=== PATIENT | female | born 1955 | race Caucasian/White ===

== ENCOUNTER 2017-05-17 05:38 | Day surgery (SDC) | payer OTHER ==
[2017-05-17] MEDS ORDERED: MIDAZOLAM 1 MG/ML 2 ML INJ (07:42)
[2017-05-17] MEDS ORDERED: FENTAnyl 50 MCG/ML VIAL (07:42)
== END 2017-05-17 11:19 | disposition home or self-care (01) ==
LOC: GIL 05:38
DX: K21.9 Gastro-esophageal reflux disease without esophagitis (principal); K29.70 Gastritis, unspecified, without bleeding; E11.9 Type 2 diabetes mellitus without complications; E78.5 Hyperlipidemia, unspecified; Z79.84 Long term (current) use of oral hypoglycemic drugs; K76.0 Fatty (change of) liver, not elsewhere classified
CPT/HCPCS: 43239; 87081

== ENCOUNTER 2018-07-07 05:50 | Day surgery (SDC) | payer OTHER ==
[2018-07-07] MEDS ORDERED: FENTAnyl 50 MCG/ML VIAL (08:19)
[2018-07-07] MEDS ORDERED: MIDAZOLAM 1 MG/ML 2 ML INJ (08:19)
[2018-07-07] MEDS ORDERED: ONDANSETRON 4 MG INJ (08:26)
== END 2018-07-07 10:01 | disposition home or self-care (01) ==
LOC: GIL 05:50
DX: K29.50 Unspecified chronic gastritis without bleeding (principal); K21.9 Gastro-esophageal reflux disease without esophagitis
CPT/HCPCS: 43239; 88305; 88312